=== PATIENT | female | born 1945 ===

== ENCOUNTER 2019-05-23 10:47 | Emergency (ER) | payer OTHER ==
[~2019-05-23] VITALS: Ht 165.1 cm; Wt 57.6 kg
== END 2019-05-23 13:35 | disposition home or self-care (01) ==
LOC: ER 10:47
DX: K29.60 Other gastritis without bleeding (principal)

== ENCOUNTER 2023-04-04 15:32 | Outpatient (CLI) | payer OTHER | END 2023-04-04 15:38 | disposition home or self-care (01) | LOC: RAD 15:32 | PROVIDERS: ATTEND Specialist | DX: M16.11 Unilateral primary osteoarthritis, right hip (principal) ==

== ENCOUNTER 2024-09-15 11:14 | Outpatient (CLI) | payer OTHER | END 2024-09-15 11:18 | disposition home or self-care (01) | LOC: SONOGRAMA 11:14 | PROVIDERS: ATTEND Pathology Anatomic Pathology | DX: D34 Benign neoplasm of thyroid gland (principal); E07.89 Other specified disorders of thyroid; E04.1 Nontoxic single thyroid nodule ==